=== PATIENT | male | born 1955 | race Caucasian/White ===

== ENCOUNTER 2019-02-06 19:08 | Emergency (ER) | payer MEDICAID ==
[~2019-02-06] VITALS: Ht 165.1 cm; Wt 84.1 kg
[2019-02-06 22:37] VITALS: BP 142/89
== END 2019-02-06 22:41 | disposition home or self-care (01) ==
LOC: EMS 19:08
DX: T83.021A Displacement of indwelling urethral catheter, initial encounter (principal); F17.210 Nicotine dependence, cigarettes, uncomplicated
CPT/HCPCS: 51702